=== PATIENT | male | born 1945 | race Hispanic/Latino ===

== ENCOUNTER 2019-12-08 21:10 | Emergency (ER) | payer OTHER ==
[2019-12-08] MEDS ORDERED: DOXYCYCLINE 100 MG CAP PO ONE (22:02)
[2019-12-08] MEDS ORDERED: SMZ./TMP. 800/160 MG TABLET ONE (22:02)
[2019-12-08 22:24] LABS: Absolute Lymphocytes (CBC) 1.2 K/uL (0.7-4.9); Hematocrit 43.7 % (39.6-49.0); Lymphocytes % 18.8 % (15.3-44.8); MPV 8.3 fL (7.6-11.3); Potassium 3.5 mmol/L (3.5-5.1); RBC Red Blood Cell Count 4.71 M/uL (4.33-5.43)
--- NOTE | 2019-12-08 22:33 | EDPHYS ---
Physician Documentation [facility] Name: Harpreet Izaguirre Age: 74 yrs Sex: Male : 1945 Arrival Date: 12/08/2019 Time: 21:16 Bed 7 Private MD: ED Physician Dalton Melendez HPI: 12/07 22:45 This 74 yrs old Male presents to ER via Ambulatory with complaints of Rash. kb 22:45 The patient's rash thought to be caused by an unknown cause. The rash is located on the kb right valles. The rash can be described as erythematous. Onset: The symptoms/episode began/occurred 3 day(s) ago. Associated signs and symptoms: Pertinent positives: Pain. Severity of symptoms: At their worst the symptoms were moderate in the emergency department the symptoms are unchanged. The patient has not experienced similar symptoms in the past. The patient has not recently seen a physician. Pt reports he was bit by something around his knee and since then developed redness and swelling to right lower leg. Historical: - Allergies: 21:27 No Known Allergies; - Home Meds: 21:27 pantoprazole oral oral [Active]; Lisinopril Oral [Active]; Gout Medicine [Active]; - PMHx: 21:27 Hypertension; GERD; Gout; High Cholesterol; Heart Stents; - PSHx: 21:27 Tonsillectomy; Knee surgery; - Immunization history:: Adult Immunizations unknown. - Social history:: Smoking status: Patient reports the use of cigarette tobacco products, cigars, Patient uses alcohol, weekly. ROS: 22:46 Constitutional: Negative for fever, chills, and weight loss, Cardiovascular: Negative kb for chest pain, palpitations, and edema, Respiratory: Negative for shortness of breath, cough, wheezing, and pleuritic chest pain, Abdomen/GI: Negative for abdominal pain, nausea, vomiting, diarrhea, and constipation, Back: Negative for injury and pain, MS/Extremity: Negative for injury and deformity, Neuro: Negative for headache, weakness, numbness, tingling, and seizure. 22:46 Skin: Positive for erythema, rash, swelling, of the right valles. Exam: 22:46 Constitutional: This is a well developed, well nourished patient who is awake, alert, kb and in no acute distress. Head/Face: Normocephalic, atraumatic. Chest/axilla: Normal chest wall appearance and motion. Nontender with no deformity. No lesions are appreciated. Cardiovascular: Regular rate and rhythm with a normal S1 and S2. No gallops, murmurs, or rubs. Normal PMI, no JVD. No pulse deficits. Respiratory: Lungs have equal breath sounds bilaterally, clear to auscultation and percussion. No rales, rhonchi or wheezes noted. No increased work of breathing, no retractions or nasal flaring. Abdomen/GI: Soft, non-tender, with normal bowel sounds. No distension or tympany. No guarding or rebound. No evidence of tenderness throughout. MS/ Extremity: Pulses equal, no cyanosis. Neurovascular intact. Full, normal range of motion. Neuro: Awake and alert, GCS 15, oriented to person, place, time, and situation. Cranial nerves II-XII grossly intact. Motor strength 5/5 in all extremities. Sensory grossly intact. Cerebellar exam normal. Normal gait. 22:46 Skin: cellulitis, that is moderate, on the right valles. Vital Signs: 21:21 BP 138 / 60; Pulse 86; Resp 18; Temp 98.1; Pulse Ox 98% on R/A; Weight 83.91 kg; Height wh 5 ft. 6 in. (167.64 cm); 22:30 BP 105 / 47; Pulse 80; Resp 16; Pulse Ox 99% ; rr5 21:21 Body Mass Index 29.86 (83.91 kg, 167.64 cm) MDM: 21:41 Patient medically screened. kb 22:31 Data reviewed: vital signs, nurses notes. Data interpreted: Pulse oximetry: on room air kb is 98 %. Interpretation: normal. Counseling: I had a detailed discussion with the patient and/or guardian regarding: the historical points, exam findings, and any diagnostic results supporting the discharge/admit diagnosis, lab results, the need for outpatient follow up, a family practitioner, to return to the emergency department if symptoms worsen or persist or if there are any questions or concerns that arise at home. 12/07 21:46 Order name: CBC with Diff; Complete Time: 22:31 kb 12/07 21:46 Order name: Basic Metabolic Panel; Complete Time: 22:31 kb 12/07 21:46 Order name: IV Start; Complete Time: 22:07 kb 12/07 21:46 Order name: Blood Culture Adult (2) kb Administered Medications: 21:52 Drug: Bactrim (160 mg-800 mg (DS) 1 tablet Route: PO; rr5 22:48 Follow up: Response: No adverse reaction; Medication administered at discharge. ss 21:52 Drug: Doxycycline 100 mg Route: PO; rr5 22:48 Follow up: Response: No adverse reaction; Medication administered at discharge. ss Disposition: 12/08 03:00 Co-signature as Attending Physician, Dalton Melendez MD. mh7 Disposition: 12/08/19 22:33 Discharged to Home. Impression: Cellulitis of right lower limb. - Condition is Stable. - Discharge Instructions: Cellulitis, Adult, Iiph-gy-Vewm. - Prescriptions for Doxycycline Hyclate 100 mg Oral Tablet - take 1 tablet by ORAL route every 12 hours; 20 tablet. Bactrim DS 800- 160 mg Oral Tablet - take 1 tablet by ORAL route every 12 hours for 10 days; 20 tablet. - Medication Reconciliation Form, Thank You Letter, Antibiotic Education, Prescription Opioid Use form. - Follow up: Emergency Department; When: As needed; Reason: Worsening of condition. Follow up: Private Physician; When: 2 - 3 days; Reason: Recheck today's complaints, Continuance of care, Re-evaluation by your physician. Signatures: Dispatcher [employer] Julianna Ward, RING SEWER-C RING SEWER-Temi Corrigan RN RN Den Brunner Raymond RN RN 5 Dalton Melendez MD MD [email or web address] Corrections: (The following items were deleted from the chart) 12/07 22:47 22:33 12/08/2019 22:33 Discharged to Home. Impression: Cellulitis of right lower limb. ss Condition is Stable. Forms are Medication Reconciliation Form, Thank You Letter, Antibiotic Education, Prescription Opioid Use. Follow up: Emergency Department; When: As needed; Reason: Worsening of condition. Follow up: Private Physician; When: 2 - 3 days; Reason: Recheck today's complaints, Continuance of care, Re-evaluation by your physician. kb
--- NOTE | 2019-12-08 22:33 | ER ---
Nurse's Notes [facility] Name: Harpreet Izaguirre Age: 74 yrs Sex: Male : 1945 Arrival Date: 12/08/2019 Time: 21:16 Bed 7 Private MD: Diagnosis: Cellulitis of right lower limb Presentation: 12/07 21:21 Chief complaint: Patient states: C/O rash and redness on right lower extremity that wh starting to spread more. Pt feels more discomfort rather than pain on the affected area. Pt denies fever or any associated symptoms. Coronavirus screen: Client denies travel out of the [place] in the last 14 days. At this time, the client does not indicate any symptoms associated with coronavirus-19. Ebola Screen: Patient negative for fever greater than or equal to 101.5 degrees Fahrenheit, and additional compatible Ebola Virus Disease symptoms Patient denies exposure to infectious person. Initial Sepsis Screen: Does the patient meet any 2 criteria? No. Patient's initial sepsis screen is negative. Does the patient have a suspected source of infection? Yes: Skin breakdown/wound. Risk Assessment: Do you want to hurt yourself or someone else? Patient reports no desire to harm self or others. Onset of symptoms was December 08, 2019. 21:21 Method Of Arrival: Ambulatory 21:21 Acuity: LORA 3 Historical: - Allergies: 21:27 No Known Allergies; - Home Meds: 21:27 pantoprazole oral oral [Active]; Lisinopril Oral [Active]; Gout Medicine [Active]; - PMHx: 21:27 Hypertension; GERD; Gout; High Cholesterol; Heart Stents; - PSHx: 21:27 Tonsillectomy; Knee surgery; - Immunization history:: Adult Immunizations unknown. - Social history:: Smoking status: Patient reports the use of cigarette tobacco products, cigars, Patient uses alcohol, weekly. Screenin:28 Abuse screen: Denies threats or abuse. Denies injuries from another. Nutritional screening: No deficits noted. Tuberculosis screening: No symptoms or risk factors identified. Fall Risk None identified. Assessment: 21:39 General: Appears in no apparent distress. uncomfortable, obese, Behavior is calm, vc cooperative, appropriate for age. Pain: Complains of pain in right valles Pain does not radiate. Pain currently is 0 out of 10 on a pain scale. at worst was 5 out of 10 on a pain scale. Quality of pain is described as pressure, Pain began 2-3 days ago. Is continuous, Alleviated by rest, Aggravated by weight bearing, Also complains of no other associated symptoms. Neuro: Level of Consciousness is awake, alert, obeys commands, Oriented to person, place, time, situation, Appropriate for age. Cardiovascular: Capillary refill < 3 seconds. Respiratory: Airway is patent Respiratory effort is even, unlabored, Respiratory pattern is regular, symmetrical. GI: No signs and/or symptoms were reported involving the gastrointestinal system. : No signs and/or symptoms were reported regarding the genitourinary system. Derm: Skin Wound noted right valles Wound is red in color with yellow weeping fluid. 22:45 Reassessment: Patient appears in no apparent distress at this time. Patient is alert, rr5 oriented x 3, equal unlabored respirations, skin warm/dry/pink. discharge instruction given and explained without complaints made. Vital Signs: 21:21 BP 138 / 60; Pulse 86; Resp 18; Temp 98.1; Pulse Ox 98% on R/A; Weight 83.91 kg; Height 5 ft. 6 in. (167.64 cm); 22:30 BP 105 / 47; Pulse 80; Resp 16; Pulse Ox 99% ; rr5 21:21 Body Mass Index 29.86 (83.91 kg, 167.64 cm) ED Course: 21:16 Patient arrived in ED. cl3 21:24 Triage completed. wh 21:29 Arm band placed on right wrist. 21:35 Prachi Rios, MATEO is Primary Nurse. vc 21:41 Julianna Alan FNP-C is PHCP. kb 21:41 Dalton Melendez MD is Attending Physician. kb 21:42 Patient has correct armband on for positive identification. Bed in low position. Pulse vc ox on. NIBP on. 22:46 No provider procedures requiring assistance completed. IV discontinued, intact, ss bleeding controlled, No redness/swelling at site. Pressure dressing applied. Administered Medications: 21:52 Drug: Bactrim (160 mg-800 mg (DS) 1 tablet Route: PO; rr5 22:48 Follow up: Response: No adverse reaction; Medication administered at discharge. ss 21:52 Drug: Doxycycline 100 mg Route: PO; rr5 22:48 Follow up: Response: No adverse reaction; Medication administered at discharge. Outcome: 22:33 Discharge ordered by . kb 22:46 Discharged to home ambulatory. ss 22:46 Condition: good 22:46 Discharge instructions given to patient, Instructed on discharge instructions, follow up and referral plans. medication usage, wound care, Demonstrated understanding of instructions, follow-up care, medications, Prescriptions given X 2. 22:47 Patient left the ED. Signatures: Julianna Alan, LABEL DESIGNER-C LABEL DESIGNER-Temi Corrigan RN RN Den Brunner Ramakrishna Mathews RN RN rr5 Roverto Larson cl3 Prachi Rios RN RN vc Corrections: (The following items were deleted from the chart) 21:29 21:21 Acuity: LORA 4 [facility]
[2019-12-09 01:53] VITALS: BP 138/60; TEMP 98.1; O2SAT 98
== END 2019-12-08 22:47 | disposition home or self-care (01) ==
LOC: ER 21:10
DX: L03.115 Cellulitis of right lower limb (principal); I10 Essential (primary) hypertension; E78.00 Pure hypercholesterolemia, unspecified; Z95.818 Presence of other cardiac implants and grafts; F17.290 Nicotine dependence, other tobacco product, uncomplicated
CPT/HCPCS: 36415; 80048; 85025; 87040; 99283

== ENCOUNTER 2020-10-03 15:40 | Inpatient (IN) | payer OTHER ==
[2020-10-03 19:52] LABS: Basophils % 0.5 % (0-1.3); Hematocrit 45.3 % (39.6-49.0); Lymphocytes % 23.7 % (15.3-44.8); MPV 8.6 fL (7.6-11.3); RBC Red Blood Cell Count 5.13 M/uL (4.33-5.43)
[2020-10-03 19:53] LABS: Bilirubin Direct 0.2 mg/dL (0-0.2); Bilirubin Total 0.5 mg/dL (0.2-1.0); Potassium 3.3 mmol/L (3.5-5.1); Protein, Total 8.4 g/dL (6.4-8.2)
[2020-10-03] MEDS ORDERED: CEFAZOLIN/SWI 1gm 1 GM/10 ML SYR ONE ×2 (19:56→19:57)
--- NOTE | 2020-10-03 19:57 | RAD REPORT ---
EXAM DESCRIPTION: US - UPPER EXTREMITY VENOUS UNILATE - 10/03/2020 7:46 pm CLINICAL HISTORY: SWELLING Arm pain and swelling COMPARISON: <Comparisons> FINDINGS: Left upper extremity venous system was interrogated with Doppler technique. Normal flow, c ompressibility and augmentation was noted. There is no DVT present. IMPRESSION: No evidence of left upper extremity deep venous thrombosis.
[2020-10-03] MEDS ORDERED: NA CHLORIDE 0.9% 100 ML ONE (19:58)
[2020-10-03] MEDS ORDERED: VANCOMYCIN 1 GM/VIAL ONE (19:58)
[2020-10-03] MEDS ORDERED: CEFEPIME 2 GM VIAL ONE (19:59)
[2020-10-03] MEDS ORDERED: NA CHLORIDE 0.9% 250 ML ONE (19:59)
--- NOTE | 2020-10-03 20:25 | ER ---
Nurse's Notes [facility] Name: Harpreet Izaguirre Age: 75 yrs Sex: Male : 1945 Arrival Date: 10/03/2020 Time: 15:41 Bed 30 Private MD: Diagnosis: Cellulitis of left upper limb Presentation: 10/03 16:18 Chief complaint: Patient states: Dr. Coello's office cut some skin cancer off my left jl7 forearm on Saturday and the incisions have come apart. The pharmacy was closed all weekend and still closed today so I haven't had any antibiotics and the area is red all the way to my hand. Coronavirus screen: Client denies travel out of the [place] in the last 14 days. At this time, the client does not indicate any symptoms associated with coronavirus-19. Ebola Screen: No symptoms or risks identified at this time. Initial Sepsis Screen: Does the patient meet any 2 criteria? No. Patient's initial sepsis screen is negative. Does the patient have a suspected source of infection? Yes: Skin breakdown/wound. Risk Assessment: Do you want to hurt yourself or someone else? Patient reports no desire to harm self or others. Onset of symptoms was October 03, 2020. Care prior to arrival: None. 16:18 Method Of Arrival: Ambulatory [facility] 16:18 Acuity: LORA 3 jl7 Historical: - Allergies: 16:21 No Known Allergies; jl7 - PMHx: 16:21 GERD; Gout; heart stents; High Cholesterol; Hypertension; jl7 - Immunization history:: Adult Immunizations up to date, Client reports receiving the 2nd dose of the Covid vaccine. - Social history:: Smoking status: Patient reports the use of cigarette tobacco products, cigars. Screenin:01 Abuse screen: Denies threats or abuse. Nutritional screening: No deficits noted. ap3 Tuberculosis screening: No symptoms or risk factors identified. Fall Risk None identified. Assessment: 18:58 General: Appears in no apparent distress. comfortable, Behavior is calm, cooperative, ap3 appropriate for age. Pain: Complains of pain in dorsal aspect of left forearm Pain does not radiate. Neuro: Level of Consciousness is awake, alert, obeys commands, Oriented to person, place, time, situation, Appropriate for age Gait is steady. Cardiovascular: Capillary refill < 3 seconds. Respiratory: Airway is patent Respiratory effort is even, unlabored, Respiratory pattern is regular, symmetrical. GI: No signs and/or symptoms were reported involving the gastrointestinal system. : No signs and/or symptoms were reported regarding the genitourinary system. EENT: No signs and/or symptoms were reported regarding the EENT system. Derm: Wound noted dorsal aspect of left forearm Wound is dehisced post sx wound from cancer removal patient had done on Wednesday September 30, 2020. Patients left arm is reddened in color from the elbow down to his left hand. Swelling is present in the left hand. 20:58 General: attempted report. Receiving nurse is currently in with her recent admission, ap3 and I was informed she will return m y phone call. . 21:17 Reassessment: Patient and/or family updated on plan of care and expected duration. Pain ap3 level reassessed. Patient is alert, oriented x 3, equal unlabored respirations, skin warm/dry/pink. Vital Signs: 16:18 BP 124 / 57; Pulse 72; Resp 17; Temp 97.9; Pulse Ox 99% on R/A; Weight 83.01 kg; Pain jl7 0/10; 21:17 BP 132 / 65; Pulse 68; Resp 18; Pulse Ox 99% on R/A; ap3 ED Course: 15:41 Patient arrived in ED. as 16:21 Triage completed. jl7 16:21 Arm band placed on right wrist. Patient placed in waiting room, Patient notified of jl7 wait time. 17:13 Inserted saline lock: 20 gauge in right antecubital area, using aseptic technique. ap3 Blood collected. 18:50 Jeffery Dominguez NP is PHCP. pm1 18:50 Sanket Garibay MD is Attending Physician. pm1 18:58 Jessica Vee, MATEO is Primary Nurse. ap3 19:01 Patient has correct armband on for positive identification. Bed in low position. Call ap3 light in reach. Side rails up X 1. Pulse ox on. NIBP on. Door closed. Noise minimized. PO fluids given. 19:46 UPPER EXTREMITY VENOUS UNILATE In Process Unspecified. EDMS 20:25 Malcom Quick is Hospitalizing Provider. pm1 20:36 Prezas, Ari, DO is Hospitalizing Provider. pm1 22:18 No provider procedures requiring assistance completed. Patient admitted, IV remains in ap3 place. Administered Medications: 19:51 Drug: Cefepime 2 grams Route: IVPB; Rate: 200 ml/hr; Infused Over: 30 mins; Site: right ap3 antecubital; 20:59 Follow up: IV Status: Completed infusion; IV Intake: 200ml ap3 21:27 Drug: vancoMYCIN 1 grams Route: IVPB; Infused Over: 2 hrs; Site: right antecubital; ap3 22:19 Follow up: IV Status: Infusion continued upon admission ap3 Intake: 20:59 IV: 200ml; Total: 200ml. ap3 Outcome: 20:25 Decision to Hospitalize by Provider. pm1 22:18 Condition: good ap3 22:18 Discharge instructions given to patient, Instructed on the need for admit, Demonstrated understanding of admission 22:56 Admitted to Med/surg accompanied by nurse, via wheelchair, room 204, with chart. ap3 22:57 Patient left the ED. ap3 Signatures: Dispatcher [employer] EDMS Rosmery Rutherford Patrick, TRAINS SERVICE CONDUCTOR TRAINS SERVICE CONDUCTOR pm1 Marco A Magaña, RN RN jl7 Jessica Vee RN RN ap3
--- NOTE | 2020-10-03 20:25 | EDPHYS ---
Physician Documentation [facility] Name: Harpreet Izaguirre Age: 75 yrs Sex: Male : 1945 Arrival Date: 10/03/2020 Time: 15:41 Bed 30 Private MD: JULIANA Physician Sanket Garibay HPI: 10/03 19:02 This 75 yrs old Male presents to ER via Ambulatory with complaints of Incision pm1 Problem. 19:02 The patient presents with cellulitis of the dorsal aspect of left forearm. Description: pm1 draining, swollen. 19:02 Onset: The symptoms/episode began/occurred yesterday. Possible cause(s): wound pm1 dehiscence. Associated signs and symptoms: Pertinent positives: drainage, swelling, Pertinent negatives: headache. Modifying factors: the symptoms are alleviated by nothing, the symptoms are aggravated by nothing. Severity of symptoms: in the emergency department the symptoms are actually worse. The patient has not experienced similar symptoms in the past. The patient has been recently seen by a physician: Dr. Coello. Had skin cancer removed from his left forearm on Saturday Patient noticed wound dehiscence and swelling to hand and left forearm yesterday. Historical: - Allergies: 16:21 No Known Allergies; jl7 - PMHx: 16:21 GERD; Gout; heart stents; High Cholesterol; Hypertension; jl7 - Immunization history:: Adult Immunizations up to date, Client reports receiving the 2nd dose of the Covid vaccine. - Social history:: Smoking status: Patient reports the use of cigarette tobacco products, cigars. ROS: 19:02 Constitutional: Negative for fever, chills, and weight loss. pm1 19:02 Cardiovascular: Negative for chest pain, palpitations, and edema, Respiratory: Negative for shortness of breath, cough, wheezing, and pleuritic chest pain, Abdomen/GI: Negative for abdominal pain, nausea, vomiting, diarrhea, and constipation. 19:02 Neuro: Negative for headache, weakness, numbness, tingling, and seizure. 19:02 MS/extremity: Positive for swelling, of the left hand and left forearm, Negative for paresthesias, tingling. 19:02 Skin: Positive for of the dorsal aspect of left forearm, wound dehiscence and drainage. 19:02 All other systems are negative. Exam: 19:02 Constitutional: This is a well developed, well nourished patient who is awake, alert, pm1 and in no acute distress. Head/Face: Normocephalic, atraumatic. 19:02 Eyes: Exam is negative for acute changes, Extraocular movements: no acute changes, Conjunctiva: no acute changes, no injection. 19:02 ENT: Exam is negative for acute changes, Mouth: Lips: normal, Oral mucosa: normal, pink and intact, moist. 19:02 Cardiovascular: Exam negative for acute changes, Rate: normal, Rhythm: regular, Pulses: no pulse deficits are appreciated. 19:02 Respiratory: Exam negative for acute changes, respiratory distress, shortness of breath. 19:02 Abdomen/GI: Inspection: abdomen appears normal, Palpation: abdomen is soft and non-tender, in all quadrants. Vital Signs: 16:18 BP 124 / 57; Pulse 72; Resp 17; Temp 97.9; Pulse Ox 99% on R/A; Weight 83.01 kg; Pain jl7 0/10; 21:17 BP 132 / 65; Pulse 68; Resp 18; Pulse Ox 99% on R/A; ap3 MDM: 18:57 Patient medically screened. pm1 18:57 Data reviewed: vital signs. Data interpreted: Pulse oximetry: on room air is 99 %. pm1 Interpretation: normal. 20:23 Counseling: I had a detailed discussion with the patient and/or guardian regarding: the pm1 historical points, exam findings, and any diagnostic results supporting the discharge/admit diagnosis, lab results, the need for further work-up and treatment in the hospital. 10/03 19:01 Order name: Blood Culture Adult (2) pm1 10/03 19:01 Order name: Wound Culture pm1 10/03 19:01 Order name: CBC with Diff; Complete Time: 20:21 pm1 10/03 19:01 Order name: BMP; Complete Time: 20:21 pm1 10/03 19:01 Order name: LFT's; Complete Time: 20:21 pm10/03 19:01 Order name: Procalcitonin; Complete Time: 20:21 pm1 10/03 19:01 Order name: IV Saline Lock; Complete Time: 19:23 pm1 10/03 19:01 Order name: Lactate; Complete Time: 20:21 pm1 10/03 19:16 Order name: UPPER EXTREMITY VENOUS UNILATE; Complete Time: 20:21 EDMS Administered Medications: 19:51 Drug: Cefepime 2 grams Route: IVPB; Rate: 200 ml/hr; Infused Over: 30 mins; Site: right ap3 antecubital; 20:59 Follow up: IV Status: Completed infusion; IV Intake: 200ml ap3 21:27 Drug: vancoMYCIN 1 grams Route: IVPB; Infused Over: 2 hrs; Site: right antecubital; ap3 22:19 Follow up: IV Status: Infusion continued upon admission ap3 Disposition: 10/04 18:50 Co-signature as Attending Physician, Sanket Garibay MD I agree with the assessment and ruben plan of care. Disposition Summary: 10/03/20 20:25 Hospitalization Ordered Hospitalization Status: Inpatient Admission pm1 Location: Telemetry/MedSurg (Inpatient) pm1 Condition: Stable pm1 Problem: new pm1 Symptoms: have improved pm1 Bed/Room Type: Standard pm1 Provider: Ari Garnica(10/03/20 20:36) pm1 Room Assignment: [facility](10/03/20 20:42) Diagnosis - Cellulitis of left upper limb pm1 Forms: - Medication Reconciliation Form pm1 - SBAR form pm1 Signatures: Dispatcher [employer] EDMS Natalia Duff RN Sanket Sr MD MD cha Marinas, Patrick, BIOCHEMISTRY SPECIALIST BIOCHEMISTRY SPECIALIST pm1 Marco A Magaña RN RN jl7 Jessica Vee RN RN ap3 Corrections: (The following items were deleted from the chart) 10/03 19:16 19:02 Extremity Venous Uni Ltd+[email or web address] ordered. EDMS EDMS 20:36 20:25 Malcom Quick pm1 pm1 20:42 20:25 pm1 mw
[2020-10-03] MEDS ORDERED: Levofloxacin500mg IV 500 MG/100 ML BAG IV SCH (22:00)
[2020-10-03] MEDS ORDERED: ACETAMINOPHEN 500 MG TAB PO PRN (22:00)
[2020-10-03] MEDS ORDERED: MORPHINE 2 MG/ML SYR IV PRN (22:00)
[2020-10-03] MEDS ORDERED: ONDANSETRON 4 MG/2 ML VIAL IV PRN (22:00)
[2020-10-03 23:11] VITALS: BMI 30.6
[2020-10-03] MEDS ORDERED: VANCOMYCIN 500 MG in NA CHLORIDE 0.9% 100 ML IVPB SCH (23:30)
--- NOTE | 2020-10-03 23:53 | P.HP ---
Certification for Inpatient Patient admitted to: Inpatient With expected LOS: >2 Midnights Patient will require the following post-hospital care: None Practitioner: I am a practitioner with admitting privileges, knowledge of patient current condition, hospital course, and medical plan of care. Services: Services provided to patient in accordance with Admission requirements found in Title 42 Section 412.3 of the Code of Federal Regulations Patient History Date of Service: 10/03/20 Primary Care Provider: Reji Reason for admission: Cellulitis Left Forearm History of Present Illness: This is a 75-year-old male with a history of high cholesterol, hypertension and coronary artery disease who presented to the emergency room today after having an incisional biopsy to the left forearm for cancer this past Saturday. Patient was seen by a doctor Coello who is a vice president process on an outpatient center to have the procedure completed. Patient stated that he was unable to fill is antibiotics and that on Saturday he started to have redness and blistering around the wound site that has since spread. Patient was seen emerge ncy room today and worked up. Patient had a white cell count of 8.4, hemoglobin of 15, hematocrit of 45.3, platelet 197. Patient had a sodium of 138, potassium 3.3, chloride 104, bicarb 33, be you in 11, creatinine 1.03, glucose 105. Blood cultures were drawn and patient was put on vancomycin and cefepime in the emergency room. Medicine saw patient and ask for consult to Dr. Coleman will see the patient in the morning. Patient is to stay NPO though midnight as there is a possibility that Dr. Coleman will take patient for debridement in the morning. Allergies No Known Allergies Allergy (Verified 10/03/20 23:18) Home medications list reviewed: Yes Home Medications: Aspirin 81 mg PO DAILY 04/12/13 Atorvastatin Calcium [Lipitor*] 20 mg PO DAILY 04/12/13 atenoloL [Tenormin*] 50 mg PO DAILY 04/12/13 lisinopriL [Prinivil*] 10 mg PO DAILY 04/12/13 allopurinoL [Zyloprim] 100 mg PO DAILY 12/20/15 Furosemide [Lasix] 20 mg PO TID #30 tab 12/21/15 - Past Medical/Surgical History Has patient received pneumonia vaccine in the past: Yes Diabetic: No -: HTN -: hypercholesterolemia -: chf -: A cigar smoker -: cardiac cath x3 -: heart stent x3 -: tonsilectomy - Social History Smoking Status: Current some day smoker Counseled patient to stop smoking for: less than 10 minutes Smoking therapy provided: Yes Patient receptive to therapy: Yes Alcohol use: No CD- Drugs: No Caffeine use: Yes Place of Residence: Home Review of Systems General: Unremarkable Eyes: Unremarkable Respiratory: Unremarkable Cardiovascular: Unremarkable Gastrointestinal: Unremarkable Musculoskeletal: Unremarkable Integumentary: As per HPI Neurological: Unremarkable Lymphatics: Unremarkable Physical Examination - Vital Signs Temperature: 98.0 F Blood Pressure: 142/62 Pulse: 60 Respirations: 18 Pulse Ox (%): 98 - Physical Exam General: Alert, Oriented x3, Cooperative HEENT: PERRLA, Mucous membr. moist/pink, EOMI Neck: Supple, 2+ carotid pulse no bruit, JVD not distended Respiratory: Clear to auscultation bilaterally, Normal air movement Cardiovascular: No edema, Normal pulses, Regular rate/rhythm, Normal S1 S2, No gallops, No rubs, No murmurs Capillary refill: <2 Seconds Gastrointestinal: Normal bowel sounds, Soft and benign, Non-distended, No ascites, No tenderness, No masses, No rebound, No guarding Musculoskeletal: No clubbing, No swelling, No contractures, No tenderness Integumentary: Other (Patient has approximately 7.5 cm incisional wound to the dorsal left forearm with dehiscence. Surrounding the wound is multiple vesicular serous sanguinous lesions with moderate swelling and erythema that extends from the dorsal hand up to the antecubital region of the left forearm.) Neurological: Normal speech, Normal strength at 5/5 x4 extr, Normal tone, Sensation intact, Cranial nerves 3-12 intact, Normal affect Lymphatics: No axilla or inguinal lymphadenopathy - Studies Laboratory Data (last 24 hrs) 10/03/20 19:13: Sodium 139, Potassium 3.3 L, BUN 11, Creatinine 1.03, Glucose 105, Total Bilirubin 0.5, AST 16, ALT 17, Alkaline Phosphatase 142 H 10/03/20 19:13: WBC 8.40, Hgb 15.0, Hct 45.3, Plt Count 197 Assessment and Plan - Problems (Diagnosis) (1) Hypertension Current Visit: Yes Status: Chronic Qualifiers: Hypertension type: primary hypertension Qualified Code(s): I10 - Essential (primary) hypertension (2) Hypercholesterolemia Current Visit: Yes Status: Chronic (3) Cellulitis of left forearm Current Visit: Yes Status: Acute (4) Dehiscence of surgical wound Current Visit: Yes Status: Acute Qualifiers: Encounter type: initial encounter Qualified Code(s): T81.31XA - Disruption of external operation (surgical) wound, not elsewhere classified, initial e ncounter - Plan 1. Patient will maintain on antibiotics with vancomycin and Levaquin at this time for cellulitis of the left forearm 2. We will monitor patient's vital signs over the next couple days to ensure stability and that he does not become septic 3. DVT prophylaxis 4. Will monitor his blood pressure and will treat for anything over 160 systolic or 90 diastolic 5. Patient was placed on potassium protocol as well 6. We will wait for further care instructions by Dr. Coleman. Depending on treatment course infectious disease may or may not have to be consulted. Discharge Plan: Home Plan to discharge in: Greater than 2 days - Advance Directives Does patient have a Living Will: No Does patient have a Durable POA for Healthcare: No - Code Status/Comfort Care Code Status Assessed: Yes Code Status: Full Code Critical Care: No Time Spent Managing Pts Care (In Minutes): 80
[2020-10-03] MEDS ORDERED: NA CHLORIDE 0.9% 500 ML ONE (23:58)
[2020-10-04] MEDS ORDERED: NA CHLORIDE 0.9% 100 ML ONE
[2020-10-04] MEDS ORDERED: VANCOMYCIN 500 MG/VIAL ONE (00:03)
[2020-10-04 04:19] LABS: Absolute Lymphocytes (CBC) 1.3 K/uL (0.7-4.9); Basophils % 0.5 % (0-1.3); Hematocrit 40.2 % (39.6-49.0); Lymphocytes % 19.3 % (15.3-44.8); MPV 8.2 fL (7.6-11.3); RBC Red Blood Cell Count 4.58 M/uL (4.33-5.43)
[2020-10-04 04:31] LABS: BUN Blood Urea Nitrogen 10 mg/dL (7-18); Bicarbonate 29 mmol/L (21-32); Glucose Level 94 mg/dL (74-106); Potassium 3.3 mmol/L (3.5-5.1); Sodium Level 141 mmol/L (136-145)
--- NOTE | 2020-10-04 05:47 | P.PN ---
Subjective Date of Service: 10/04/20 Primary Care Provider: Dr. Mendoza Chief Complaint: Cellulitis Left Forearm Subjective: Other (Patient doing well at this time. Patient reports seen by dermatology as an outpatient. He recently had a biopsy which turned out to be abnormal for cancer. He then had a larger excision. Patient now with dehiscence of wound. He was not able to get antibiotics which recommended after Procedure) Physical Examination - Vital Signs Temperature: 98.1 F Blood Pressure: 139/60 Pulse: 71 Respirations: 18 Pulse Ox (%): 97 - Studies Laboratory Data (last 24 hrs) 10/03/20 19:13: Sodium 139, Potassium 3.3 L, BUN 11, Creatinine 1.03, Glucose 105, Total Bilirubin 0.5, AST 16, ALT 17, Alkaline Phosphatase 142 H 10/03/20 19:13: WBC 8.40, Hgb 15.0, Hct 45.3, Plt Count 197 Assessment & Plan Discharge Plan: Home Plan to discharge in: 48 Hours Physician Review Additional Text: Dopper Ext: COMPARISON: <Comparisons> FINDINGS: Left upper extremity venous system was interrogated with Doppler technique. Normal flow, compressibility and augmentation was noted. There is no DVT present. IMPRESSION: No evidence of left upper extremity deep venous thrombosis. Physical Exam: General: Alert, Oriented x3, Cooperative HEENT: Extraocular movements are intact. Neck: Supple Respiratory: Clear to auscultation bilaterally, Normal air movement Cardiovascular: Regular rate and rhythm Gastrointestinal: Soft nontender nondistended Integumentary: Other (Patient has approximately 7.5 cm incisional wound to the dorsal left forearm with dehiscence. Surrounding the wound is multiple vesicular serous sanguinous lesions with moderate swelling and erythema that extends from the dorsal hand up to the antecubital region of the left forearm.) Neurological: Normal speech, Normal strength at 5/5 x4 extr, Normal tone, Sensation intact, Cranial nerves 3-12 intact, Normal affect Lymphatics: No axilla or inguinal lymphadenopathy Impression: Left forearm cellulitis with recent 7.5 cm excisional wound due to skin cancer with dehiscence HTN Hyperlipidemia BPH Gout Plan: Left forearm cellulitis with recent 7.5 cm excisional wound due to skin cancer with dehiscence: Continue IV vancomycin and Levaquin. We will continue to monitor closely. Wound and blood culture obtained. Patient n.p.o. in anticipation for likely procedure by plastic surgery. Plastic surgery consulted to further assess. Patient will likely require irrigation and debridement with likely closure. Await further recommendations from plastic surgery. Pharmacy to monitor and adjust medication. DVT prophylaxis in placeLovenox. We will try to get more information from dermatology on the type of cancer that was removed. Anticipate improvement over the next 48 hours. HTN: Recommend to discontinue Dyazide. Will cushion cover inspector to carvedilol. Will monitor and make adjustments appropriately. Hyperlipidemia: Continue Lipitor 20 mg daily BPH: Continue Flomax 0.4 mg daily Gout: Continue allopurinol 100 mg daily DVT prophylaxis Lovenox Code status: Full code Advanced care planning-30 min: Home at discharge. Time Spent Managing Pts Care (In Minutes): 55
[2020-10-04] MEDS ORDERED: VANCOMYCIN/NS 1 gm 1 GM/250 ML BAG IVPB SCH (07:00)
[2020-10-04] MEDS ORDERED: HYDROCODONE/APAP 5/325 MG TAB PO PRN (07:56)
[2020-10-04] MEDS ORDERED: TRAMADOL HCL 50 MG TAB PO PRN (07:56)
[2020-10-04] MEDS ORDERED: POTASSIUM CL SA 10 MEQ TAB PO ONE (09:00)
[2020-10-04] MEDS: ATORVASTATIN 20 MG TAB PO SCH (09:14)
[2020-10-04] MEDS: TAMSULOSIN 0.4 MG SR CAP PO SCH (09:14)
[2020-10-04] MEDS: allopurinoL 100 MG TAB PO SCH (09:14)
[2020-10-04] MEDS ORDERED: Ringers Lactate 1,000 ML IV ONE (15:16)
[2020-10-04] MEDS ORDERED: propofoL 200 MG/20 ML VIAL IV ONE (16:01)
[2020-10-04] MEDS ORDERED: ONDANSETRON 4 MG/2 ML VIAL ONE (16:02)
[2020-10-04] MEDS ORDERED: KETOROLAC 30 MG/ML INJ ONE (16:02)
[2020-10-04] MEDS ORDERED: LIDOCAINE 1% MPF 30 ML VIAL ONE (16:02)
[2020-10-04] MEDS ORDERED: FENTANYL CITR 100 MCG/2 ML ONE (16:02)
--- NOTE | 2020-10-04 16:10 | EKG ---
Test Date: 2020-10-04 Test Time: 00:17:57 Correctional Lieutenant: BINA MEASUREMENT RESULTS: Intervals: Rate: 45 IN: 226 QRSD: 86 QT: 464 QTc: 401 Terrell: P: 64 IN: 226 QRS: 40 T: 73 INTERPRETIVE STATEMENTS: Sinus tachycardia with 2nd degree AV block with 4:1 AV conduction Abnormal ECG Compared to ECG 04/14/2013 07:45:52 Sinus rhythm no longer present Electronically Signed On 10-04-20 16:08:27 CDT by Alon Mg
[2020-10-04] MEDS: ENOXAPARIN 40 MG/0.4 ML SQ SCH (17:00)
[2020-10-04] MEDS ORDERED: SILVER SULFADIAZINE 1% 25 GM TOP ONE (17:42)
[2020-10-04] MEDS: carvediloL 3.125 MG TAB PO SCH (18:00)
[2020-10-04] MEDS ORDERED: CODEINE 30MG/APAP 300MG TAB PO PRN (18:09)
[2020-10-04] MEDS: SILVER SULFADIAZINE 1% 25 GM TOP SCH (21:00)
[2020-10-04] MEDS ORDERED: SILVER SULFADIAZINE 1% 25 GM TOP SCH (21:00)
[2020-10-04] MEDS: VANCOMYCIN 1.5 GM in NA CHLORIDE 0.9% 500 ML IVPB SCH (21:04)
--- NOTE | 2020-10-04 23:17 | OP ---
Surgeon: Ricardo Coleman MD Preoperative Diagnosis: Open wound, left forearm. Postoperative Diagnosis: Open wound, left forearm. Procedure Performed: Debridement of skin and subcutaneous tissue. Anesthesia: General. Operatie Note: After satisfactory induction of general anesthesia, left arm was prepped with Betadin e scrub, Betadine paint, dry sterile drapes were applied in usual manner. Tenotomy scissors and forc eps were used to remove the sutures and curette and scissors were used to debride the skin and subcut aneous tissue as needed. The wound was jet lavage irrigated with 3 L of Betadine solution, afterward s was scrubbed with Betadine scrub brush. The wound was then covered with Silvadene cream, fluffs, a nd Kerlix. Patient tolerated procedure well and returned to Recovery. AMALIA/DARRYL Voice ID: [id number] Report ID: [id number]
[2020-10-04] MEDS: Levofloxacin500mg IV 500 MG/100 ML BAG IV SCH (23:26)
--- NOTE | 2020-10-05 06:01 | P.PN ---
Subjective Date of Service: 10/05/20 Primary Care Provider: Dr. Mendoza Chief Complaint: Cellulitis Left Forearm Subjective: Improving, Doing well Physical Examination - Vital Signs Temperature: 97.8 F Blood Pressure: 132/62 Pulse: 63 Respirations: 16 Pulse Ox (%): 97 - Studies Microbiology Data (last 24 hrs): 10/03/20 19:20 Wound - Left Forearm Gram Stain - Final Assessment & Plan Discharge Plan: Home Plan to discharge in: Greater than 2 days Physician Review Additional Text: Dopper Ext: COMPARISON: <Comparisons> FINDINGS: Left upper extremity venous system was interrogated with Doppler technique. Normal flow, compressibility and augmentation was noted. There is no DVT present. IMPRESSION: No evidence of left upper extremity deep venous thrombosis. Physical Exam: General: Alert, Oriented x3, Cooperative HEENT: Extraocular movements are intact. Neck: Supple Respiratory: Clear to auscultation bilaterally, Normal air movement Cardiovascular: Regular rate and rhythm Gastrointestinal: Soft nontender nondistended Integumentary: Erythema, swelling to the left upper extremity improved. Debrid ement done to the wound yesterday. Neurological: Normal speech, Normal strength at 5/5 x4 extr, Normal tone, Sensation intact, Cranial nerves 3-12 intact, Normal affect Lymphatics: No axilla or inguinal lymphadenopathy Surgery: Date: 10/04/2020 Surgeon: Ricardo Coleman MD Preoperative Diagnosis: Open wound, left forearm. Postoperative Diagnosis: Open wound, left forearm. Procedure Performed: Debridement of skin and subcutaneous tissue. Anesthesia: General. Impression: Left forearm cellulitis with recent 7.5 cm excisional wound due to skin cancer with dehiscence status post debridement of skin and subcutaneous tissue HTN Hyperlipidemia BPH Gout Acute renal insufficiency Plan: Left forearm cellulitis with recent 7.5 cm excisional wound due to skin cancer with dehiscence status post debridement of skin and subcutaneous tissue: Patient doing well. Erythema and swelling to the liver extremity improved. Blood and wound culture obtained and pending. Continue IV vancomycin and Levaquin. Encourage oral intake. Continue to elevate arm when sitting or lying. Continue medication for pain. Patient on DVT prophylaxisLovenox. Case discussed with plastic surgery. Plastic surgery will evaluate patient again today. Plastic surgery to determine whether patient will require wound VAC versus continued antibiotics and likely skin graft in the next couple of days. Possible intervention likely on Saturday or Bib. We will continue to monitor closely. HTN: Dyazide has been discontinued. Continue carvedilol. Will monitor and make adjustments appropriately. Hyperlipidemia: Continue Lipitor 20 mg daily BPH: Continue Flomax 0.4 mg daily Gout: Continue allopurinol 100 mg daily Acute renal insufficiency: Encourage oral intake. Dyazide has been discontinued. DVT prophylaxis Lovenox Code status: Full code Advanced care planning-30 min: Home at discharge. Time Spent Managing Pts Care (In Minutes): 55
[2020-10-05] MEDS: carvediloL 3.125 MG TAB PO SCH ×2 (06:05→17:04)
[2020-10-05 06:07] LABS: Potassium 3.9 mmol/L (3.5-5.1)
[2020-10-05] MEDS: ATORVASTATIN 20 MG TAB PO SCH (08:44)
[2020-10-05] MEDS: TAMSULOSIN 0.4 MG SR CAP PO SCH (08:44)
[2020-10-05] MEDS: allopurinoL 100 MG TAB PO SCH (08:45)
[2020-10-05] MEDS: SILVER SULFADIAZINE 1% 25 GM TOP SCH ×2 (08:46→21:00)
[2020-10-05] MEDS ORDERED: POTASSIUM CL SA 10 MEQ TAB PO ONE (09:00)
[2020-10-05] MEDS: VANCOMYCIN 1.5 GM in NA CHLORIDE 0.9% 500 ML IVPB SCH (11:39)
[2020-10-05] MEDS: ENOXAPARIN 40 MG/0.4 ML SQ SCH (16:54)
[2020-10-06] MEDS: Levofloxacin500mg IV 500 MG/100 ML BAG IV SCH
--- NOTE | 2020-10-06 03:50 | CON ---
Date of Consultation: 10/04/2020 The patient was admitted on 10/03/2020. I saw the patient on 10/04/2020. Reason For Consultation: Cardiac clearance for arm surgery. History Of Present Illness: Mr. Izaguirre was admitted to Dr. Garnica. He has been seen by Dr. Ricardo Coleman. He has a history of gout, gastroesophageal reflux disease, hypertension, dyslipidemia, c oronary artery disease, he is status post previous stent in the past. Denies any cardiac symptoms. Denies any chest pain, shortness of breath, nausea, vomiting, PND, orthopnea, pedal edema, palpitatio ns, or syncope. Has not had a stress test for few years. Allergies: NONE. Past Medical History: As stated earlier. Review of Systems: Negative. Social History: Negative. Family History: Noncontributory. Medications: At home include allopurinol, Lipitor, Flomax, triamterene with hydrochlorothiazide, and he is on cephalexin. Physical Examination: Vital Signs: Stable. He was afebrile. HEENT: Negative. Neck: Supple without any bruit, lymphadenopathy, JVD, or thyromegaly. Chest: Clear to auscultation and percussion. Cardiac: Revealed a regular rhythm and rate. No murmurs, gallops, or rubs. Abdomen: Benign. Extremities: Revealed no clubbing, cyanosis, or edema. Diagnostic Data: Showed sinus tachycardia with a second degree AV block, most likely a type 1 Wencke bach. His chest x-ray was negative. He had an extremity venous Doppler showed no evidence of left u pper extremity deep venous thrombosis. His laboratory evaluation was positive for slight hypokalemia . His white count was normal. His creatinine was normal. Impression And Plan: 1.This is a patient with history of coronary artery disease, status post stents with no previous ethan ting, but no cardiac symptoms. EKG is not showing any acute changes. Chest x-ray is negative. Crea tinine is normal. Potassium needs to be corrected, is probably low because of the diuretic. Neverth eless, I feel comfortable with him going to surgery. I think he is at low risk for perioperative mor tality. 2.Abnormal EKG. No clinical significance at this point. No symptoms. I think he needs to have a f ollowup EKG and a followup appointment in the office in the near future. His other problems includin g hypertension and dyslipidemia seem to be stable. His left arm wound is being evaluated by Dr. Juventino whalen. There is a plan to have that operated on in the near future. I will be available for sol dixon if the need arises. DAVID/DARRYL Voice ID: [id number] Report ID: [id number]
[2020-10-06 05:51] LABS: Absolute Lymphocytes (CBC) 1.5 K/uL (0.7-4.9); Basophils % 0.8 % (0-1.3); Hematocrit 37.3 % (39.6-49.0); Lymphocytes % 25.6 % (15.3-44.8); MPV 8.1 fL (7.6-11.3); RBC Red Blood Cell Count 4.26 M/uL (4.33-5.43)
--- NOTE | 2020-10-06 05:59 | P.PN ---
Subjective Date of Service: 10/06/20 Primary Care Provider: Dr. Mendoza Chief Complaint: Cellulitis Left Forearm Subjective: Improving, Doing well Physical Examination - Vital Signs Temperature: 98.7 F Blood Pressure: 134/62 Pulse: 65 Respirations: 16 Pulse Ox (%): 94 - Studies Microbiology Data (last 24 hrs): 10/03/20 19:20 Wound - Left Forearm Gram Stain - Final Assessment & Plan Discharge Plan: Home Plan to discharge in: 48 Hours Physician Review Additional Text: Dopper Ext: COMPARISON: <Comparisons> FINDINGS: Left upper extremity venous system was interrogated with Doppler technique. Normal flow, compressibility and augmentation was noted. There is no DVT present. IMPRESSION: No evidence of left upper extremity deep venous thrombosis. Physical Exam: General: Alert, Oriented x3, Cooperative HEENT: Extraocular movements are intact. Neck: Supple Respiratory: Clear to auscultation bilaterally, Normal air movement Cardiovascular: Regular rate and rhythm Gastrointestinal: Soft nontender nondistended Integumentary: Erythema, swelling to the left upper extremity improved. Debridement done to the wound yesterday. Neurological: Normal speech, Normal strength at 5/5 x4 extr, Normal tone, Sensation intact, Cranial nerves 3-12 intact, Normal affect Lymphatics: No axilla or inguinal lymphadenopathy Surgery: Date: 10/04/2020 Surgeon: Ricardo Coleman MD Preoperative Diagnosis: Open wound, left forearm. Postoperative Diagnosis: Open wound, left forearm. Procedure Performed: Debridement of skin and subcutaneous tissue. Anesthesia: General. Impression: Left forearm cellulitis with recent 7.5 cm excisional wound due to skin cancer with dehiscence status post debridement of skin and subcutaneous tissue HTN Hyperlipidemia BPH Gout Acute renal insufficiency Plan: Left forearm cellulitis with recent 7.5 cm excisional wound due to skin cancer with dehiscence status post debridement of skin and subcutaneous tissue: Patient doing well. Erythema and swelling to the liver extremity improved. Blood and wound culture obtained and pending. Continue IV vancomycin and Levaquin. Consult wound care to evaluate and treat wound. Encourage oral intake. Continue to elevate arm when sitting or lying. Continue medication for pain. Patient on DVT prophylaxisLovenox. Case discussed with plastic surgery. Plastic surgery to determine whether patient will require wound VAC versus continued antibiotics and likely skin graft in the next couple of days. Possible intervention likely on Saturday or Saturday. We will continue to monitor closely. HTN: Dyazide has been discontinued. Continue carvedilol. Will monitor and make adjustments appropriately. Hyperlipidemia: Continue Lipitor 20 mg daily BPH: Continue Flomax 0.4 mg daily Gout: Continue allopurinol 100 mg daily Acute renal insufficiency: Encourage oral intake. Dyazide has been discontin ued. DVT prophylaxis Lovenox Code status: Full code Advanced care planning-30 min: Home at discharge. Time Spent Managing Pts Care (In Minutes): 55
[2020-10-06 06:12] LABS: Magnesium 2.2 mg/dL (1.8-2.4); Potassium 3.9 mmol/L (3.5-5.1)
[2020-10-06] MEDS: carvediloL 3.125 MG TAB PO SCH ×2 (06:26→17:08)
[2020-10-06] MEDS: VANCOMYCIN 1.5 GM in NA CHLORIDE 0.9% 500 ML IVPB SCH (06:26)
[2020-10-06] MEDS: allopurinoL 100 MG TAB PO SCH (08:53)
[2020-10-06] MEDS: ATORVASTATIN 20 MG TAB PO SCH (08:53)
[2020-10-06] MEDS: TAMSULOSIN 0.4 MG SR CAP PO SCH (08:53)
[2020-10-06] MEDS: SILVER SULFADIAZINE 1% 25 GM TOP SCH ×2 (08:54→21:00)
[2020-10-06] MEDS: ENOXAPARIN 40 MG/0.4 ML SQ SCH (16:48)
[2020-10-07] MEDS: Levofloxacin500mg IV 500 MG/100 ML BAG IV SCH (01:00)
[2020-10-07] MEDS: VANCOMYCIN 1.5 GM in NA CHLORIDE 0.9% 500 ML IVPB SCH (01:10)
[2020-10-07] MEDS: carvediloL 3.125 MG TAB PO SCH (04:54)
[2020-10-07 05:47] LABS: Absolute Lymphocytes (CBC) 1.6 K/uL (0.7-4.9); Basophils % 1.2 % (0-1.3); Hematocrit 38.5 % (39.6-49.0); Lymphocytes % 23.5 % (15.3-44.8); MPV 8.1 fL (7.6-11.3); RBC Red Blood Cell Count 4.34 M/uL (4.33-5.43)
--- NOTE | 2020-10-07 05:57 | P.PN ---
Subjective Date of Service: 10/07/20 Primary Care Provider: Dr. Mendoza Chief Complaint: Cellulitis Left Forearm Subjective: Improving, Doing well Physical Examination - Vital Signs Temperature: 97.9 F Blood Pressure: 156/69 Pulse: 65 Respirations: 16 Pulse Ox (%): 96 Assessment & Plan Discharge Plan: Home Plan to discharge in: 24 Hours Physician Review Additional Text: Dopper Ext: COMPARISON: <Comparisons> FINDINGS: Left upper extremity venous system was interrogated with Doppler technique. Normal flow, compressibility and augmentation was noted. There is no DVT present. IMPRESSION: No evidence of left upper extremity deep venous thrombosis. Physical Exam: General: Alert, Oriented x3, Cooperative HEENT: Extraocular movements are intact. Neck: Supple Respiratory: Clear to auscultation bilaterally, Normal air movement Cardiovascular: Regular rate and rhythm Gastrointestinal: Soft nontender nondistended Integumentary: Erythema, swelling to the left upper extremity improved. Post op changes noted to the left forearm. Bandage in place. Neurological: Normal speech, Normal strength at 5/5 x4 extr, Normal tone, Sensation intact, Cranial nerves 3-12 intact, Normal affect Lymphatics: No axilla or inguinal lymphadenopathy Surgery: Date: 10/04/2020 Surgeon: Ricardo Coleman MD Preoperative Diagnosis: Open wound, left forearm. Postoperative Diagnosis: Open wound, left forearm. Procedure Performed: Debridement of skin and subcutaneous tissue. Anesthesia: General. Impression: Left forearm cellulitis with recent 7.5 cm excisional wound due to skin cancer with dehiscence status post debridement of skin and subcutaneous tissue HTN Hyperlipidemia BPH Gout Acute renal insufficiency Plan: Left forearm cellulitis with recent 7.5 cm excisional wound due to skin cancer with dehiscence status post debridement of skin and subcutaneous tissue: SPoke to Plastic surgery yesterday. Plan is for skin graft today. If done, then likely home with wound care instructions and follow up with Plastic surgery. Continue IV vancomycin and Levaquin. WOund care also consulted to help with management. Anticipate DC home today after surgery. HTN: Dyazide has been discontinued. Continue carvedilol. Will monitor and make adjustments appropriately. Hyperlipidemia: Continue Lipitor 20 mg daily BPH: Continue Flomax 0.4 mg daily Gout: Continue allopurinol 100 mg daily Acute renal insufficiency: Encourage oral intake. Dyazide has been discontinued. DVT prophylaxis Lovenox Code status: Full code Advanced care planning-30 min: Home at discharge. Time Spent Managing Pts Care (In Minutes): 55
[2020-10-07 06:04] LABS: Magnesium 2.3 mg/dL (1.8-2.4)
[2020-10-07] MEDS: TAMSULOSIN 0.4 MG SR CAP PO SCH (09:00)
[2020-10-07] MEDS: SILVER SULFADIAZINE 1% 25 GM TOP SCH (09:00)
[2020-10-07] MEDS: allopurinoL 100 MG TAB PO SCH (09:00)
[2020-10-07] MEDS: ATORVASTATIN 20 MG TAB PO SCH (09:00)
[2020-10-07] MEDS ORDERED: MINERAL OIL, LITE 10 ML VIAL ONE (13:13)
[2020-10-07] MEDS ORDERED: Ringers Lactate 1,000 ML IV ONE (13:44)
--- NOTE | 2020-10-07 14:18 | P.DS ---
Admission Date: 10/03/20 Discharge Date: 10/07/20 Primary Care Provider: Dr. Mendoza Disposition: ROUTINE DISCHARGE Discharge Condition: GOOD Reason for Admission: Cellulitis Left Forearm Consultations: Plastic Surgery-Dr. Coleman Procedures: Dopper Ext: COMPARISON: <Comparisons> FINDINGS: Left upper extremity venous system was interrogated with Doppler technique. Normal flow, compressibility and augmentation was noted. There is no DVT present. IMPRESSION: No evidence of left upper extremity deep venous thrombosis. Surgery: Date: 10/04/2020 Surgeon: Ricardo Coleman MD Preoperative Diagnosis: Open wound, left forearm. Postoperative Diagnosis: Open wound, left forearm. Procedure Performed: Debridement of skin and subcutaneous tissue. Anesthesia: General. Surgery: Date: 10/07/2020 Surgeon: Dr. Coleman Procedure performed: Debridement with closure of wound. Medical Problem List: Left forearm cellulitis with recent 7.5 cm excisional wound due to skin cancer with dehiscence status post debridement of skin and subcutaneous tissue with closure of wound, wound culture positive for staph aureus HTN Hyperlipidemia BPH Gout Acute renal insufficiency Brief History of Present Illness: 75-year-old male with history of hypertension, hyperlipidemia, CAD and BPH. Patient presented to the emergency room due to wound dehiscence. Patient had excisional biopsy of the left forearm for cancer last Saturday. Patient was not able to fill his antibiotics. On Saturday he reported increased redness, blistering. Since that time the wound has opened. The patient was admitted for treatment. Hospital Course: Patient presented with left forearm cellulitis with recent 7.5 cm excisional wound due to skin cancer. There was wound dehiscence. Patient was admitted for treatment. Patient was started on IV antibiotic therapy with improvement. Patient was seen and evaluated by plastic surgery. Plastic surgery performed debridement of skin and subcutaneous tissue. After swelling improved patient was taken back again to surgery for I/D and closure. Patient has done well. Wound culture positive for staph aureus. At discharge the patient will continue with Levaquin 500 mg daily for the next 5 days. Patient will continue with wound care. Recommend follow-up with plastic surgery within 1 week to follow-up his hospitalization and continue his care. Patient with hypertension. Acute renal sufficiency was noted. Patient previously on Maxzide. This was discontinued. Renal function improved off Maxzide. Blood pressure medicationcarvedilol was introduced. Blood pressure stable on current medication. At discharge patient will continue with carvedilol 3.125 mg 1 pill twice daily. Recommend to maintain blood pressure less than 130/80. Further adjustment can be done by his PCP. Recommend to monitor his blood pressure daily. If blood pressures remain above 140/90 he can follow-up with his PCP to further address. Patient with hyperlipidemia. At discharge patient will continue with Lipitor 20 mg daily. Patient with BPH. At discharge patient will continue with Flomax 0.4 mg daily. Patient with history of gout. At discharge patient will continue with allopurinol 100 mg daily. Vital Signs/Physical Exam: Temp Pulse Resp BP Pulse Ox 97.7 F 62 16 142/65 H 98 10/07/20 12:00 10/07/20 12:00 10/07/20 12:00 10/07/20 12:00 10/07/20 12:00 General: Alert, In no apparent distress, Oriented x3, Cooperative HEENT: Atraumatic Neck: Supple Respiratory: Clear to auscultation bilaterally, Normal air movement Cardiovascular: Normal pulses, Regular rate/rhythm Gastrointestinal: Normal bowel sounds, No tenderness, No masses, No rebound, No guarding Musculoskeletal: No erythema, No tenderness, No warmth Integumentary: Other (bandage in place to the left forearm. Closure was performed earlier) Neurological: Normal speech, Normal strength at 5/5 x4 extr, Normal tone, Normal affect Laboratory Data at Discharge: WBC 6.90 K/uL (4.3-10.9) D 10/07/20 05:28 Hgb 12.7 g/dL (13.6-17.9) L 10/07/20 05:28 Hct 38.5 % (39.6-49.0) L 10/07/20 05:28 Plt Count 172 K/uL (152-406) 10/07/20 05:28 Sodium 144 mmol/L (136-145) 10/07/20 05:28 Potassium 4.0 mmol/L (3.5-5.1) 10/07/20 05:28 BUN 18 mg/dL (7-18) 10/07/20 05:28 Creatinine 0.91 mg/dL (0.55-1.3) 10/07/20 05:28 Glucose 105 mg/dL (74-106) 10/07/20 05:28 Magnesium 2.3 mg/dL (1.8-2.4) 10/07/20 05:28 Total Bilirubin 0.5 mg/dL (0.2-1.0) 10/03/20 19:13 AST 16 U/L (15-37) 10/03/20 19:13 ALT 17 U/L (12-78) 10/03/20 19:13 Alkaline Phosphatase 142 U/L (45-117) H 10/03/20 19:13 Home Medications: Allopurinol 100 mg PO DAILY 10/04/20 Atorvastatin Calcium [Lipitor*] 20 mg PO DAILY 10/04/20 Tamsulosin HCl [Flomax] 1 tab PO DAILY 10/04/20 carvediloL [Coreg*] 3.125 mg PO BID 6AM 6PM #60 tab 10/07/20 levoFLOXacin [Levaquin] 500 mg PO DAILY #5 tab 10/07/20 New Medications: carvediloL [Coreg*] 3.125 mg PO BID 6AM 6PM #60 tab levoFLOXacin [Levaquin] 500 mg PO DAILY #5 tab Physician Discharge Instructions: Patient presented with left forearm cellulitis with recent 7.5 cm excisional wound due to skin cancer. There was wound dehiscence. Patient was admitted for treatment. Patient was started on IV antibiotic therapy with improvement. Patient was seen and evaluated by plastic surgery. Plastic surgery performed debridement of skin and subcutaneous tissue. After swelling improved patient was taken back again to surgery for I/D and closure. Patient has done well. Wound culture positive for staph aureus. At discharge the patient will continue with Levaquin 500 mg daily for the next 5 days. Patient will continue with wound care. Recommend follow-up with plastic surgery within 1 week to follow-up his hospitalization and continue his care. Patient with hypertension. Acute renal sufficiency was noted. Patient previously on Maxzide. This was discontinued. Renal function improved off Maxzide. Blood pressure medicationcarvedilol was introduced. Blood pressure stable on current medication. At discharge patient will continue with carvedilol 3.125 mg 1 pill twice daily. Recommend to maintain blood pressure less than 130/80. Further adjustment can be done by his PCP. Recommend to monitor his blood pressure daily. If blood pressures remain above 140/90 he can follow-up with his PCP to further address. Patient with hyperlipidemia. At discharge patient will continue with Lipitor 20 mg daily. Patient with BPH. At discharge patient will continue with Flomax 0.4 mg daily. Patient with history of gout. At discharge patient will continue with allopurinol 100 mg daily. Diet: AHA Activity: Ad nicola Followup: MARKO ZHU [Primary Care Provider] - Time spent managing pt's care (in minutes): 55
[2020-10-07] MEDS ORDERED: KETOROLAC 30 MG/ML INJ ONE (14:37)
[2020-10-07] MEDS ORDERED: FENTANYL CITR 100 MCG/2 ML ONE (14:37)
[2020-10-07] MEDS ORDERED: propofoL 200 MG/20 ML VIAL IV ONE (14:37)
[2020-10-07] MEDS ORDERED: LIDOCAINE 1% MPF 5 ML VIAL ONE (14:37)
[2020-10-07] MEDS ORDERED: dexAMETHasone 10 MG/ML VIAL ONE (14:38)
[2020-10-07] MEDS ORDERED: GLYCOPYRROLATE 0.2 MG/ML SYR ONE (15:18)
[2020-10-07 15:52] VITALS: O2SAT 100
--- NOTE | 2020-10-07 16:15 | OP ---
Surgeon: Ricardo Coleman MD Preoperative Diagnosis: Open wound, left forearm. Postoperative Diagnosis: Open wound, left forearm. Procedure: Debridement of skin and subcutaneous tissue, rotational flap closure, surgical dressing. Anesthesia: General. Description Of Procedure: After satisfactory induction of general anesthesia, the left arm was prepped with Betadine scrub, Betadine paint, dry sterile drapes were applied in usual manner. A scalpel was used to debride the skin edges. then a proximally based U-shaped flap was outlined. It was rotated in position and wound was closed with 3-0 Prolene horizontal mattress or justin. Dressed with Xeroform, Kerlix, and a splint holding the wrist in 10 degrees dorsiflexion. The patient tolerated procedure well and returned to recovery. AMALIA/DARRYL Voice ID: [id number] Report ID: [id number] DUDLEY
[2020-10-07] MEDS: ENOXAPARIN 40 MG/0.4 ML SQ SCH (17:00)
[2020-10-07 17:19] VITALS: TEMP 97.1
[2020-10-07 17:53] VITALS: BP 161/70
== END 2020-10-07 18:05 | disposition home or self-care (01) | DRG 574 ==
LOC: ER 15:40 → ERHOLD 21:10 → 2ND 21:51
PROVIDERS: ADMIT Family Medicine; ATTEND Family Medicine
PROC: 0JDH3ZZ Extraction of Left Lower Arm Subcutaneous Tissue and Fascia, Percutaneous Approach (ICD-10-PCS; principal; 2020-10-04 15:00)
PROC: 0HXEXZZ Transfer Left Lower Arm Skin, External Approach (ICD-10-PCS; 2020-10-07)
DX: L03.114 Cellulitis of left upper limb (principal); T81.31XA Disruption of external operation (surgical) wound, not elsewhere classified, initial encounter; B95.61 Methicillin susceptible Staphylococcus aureus infection as the cause of diseases classified elsewhere; I10 Essential (primary) hypertension; E78.5 Hyperlipidemia, unspecified; N40.0 Benign prostatic hyperplasia without lower urinary tract symptoms; M10.9 Gout, unspecified; N28.9 Disorder of kidney and ureter, unspecified; I25.10 Atherosclerotic heart disease of native coronary artery without angina pectoris; C44.609 Unspecified malignant neoplasm of skin of left upper limb, including shoulder; I44.1 Atrioventricular block, second degree; Z95.5 Presence of coronary angioplasty implant and graft
CPT/HCPCS: 36415; 80048; 80076; 80202; 83605; 83735; 84145; 85025; 87040; 87070; 87077; 87186; 87205; 93005; 93971; 96365; 96367; 99285; J0690; J0692; J1100; J1650; J2405; J2704; J3010; J3370; J7040; J7050; J7120

== ENCOUNTER 2023-11-07 16:04 | Emergency (ER) | payer OTHER ==
--- NOTE | 2023-11-07 17:57 | RAD REPORT ---
EXAM DESCRIPTION: US - Extrem Venous W Compress Olegario - 11/07/2023 5:47 pm CLINICAL HISTORY: PAIN Bilateral leg edema and swelling. COMPARISON: <Comparisons> TECHNIQUE: Real-time sonographic interrogation of the left and right lower extremity deep venous sys tems was performed. FINDINGS: Normal compressibility, flow augmentation, phasic flow and spontaneous flow is identified in both the left and right lower extremity deep venous systems. IMPRESSION: No sonographic evidence of left or right lower extremity deep venous thrombosis.
--- NOTE | 2023-11-07 18:05 | RAD REPORT ---
EXAM DESCRIPTION: US - Lower Extremity Arterial Bilat - 11/07/2023 5:47 pm CLINICAL HISTORY: NUMBNESS/TINGLING COMPARISON: No comparisons TECHNIQUE: Bilateral lower extremity arterial Doppler examination was performed with mook gentile FINDINGS: Triphasic waveforms are seen throughout both lower extremity arterial systems to the level of the corin salis pedis arteries. No stenosis or occlusion seen. IMPRESSION: No evidence of significant peripheral vascular disease.
--- NOTE | 2023-11-07 18:16 | ER ---
Nurse's Notes [facility] Name: Harpreet Izaguirre Age: 78 yrs Sex: Male : 1945 Arrival Date: 11/07/2023 Time: 16:04 Bed 18 Private MD: Diagnosis: Varicose veins of bilateral lower extremities with other complications Presentation: 11/06 16:17 Chief complaint: Patient states: his hands and feet turn purple during the day and his 6 doctor told him to come here because he could have issues with blood flow. Coronavirus screen: At this time, the client does not indicate any symptoms associated with coronavirus-19. Ebola Screen: No symptoms or risks identified at this time. Initial Sepsis Screen: Does the patient meet any 2 criteria? No. Patient's initial sepsis screen is negative. Does the patient have a suspected source of infection? No. Patient's initial sepsis screen is negative. Risk Assessment: Do you want to hurt yourself or someone else? Patient reports no desire to harm self or others. Onset of symptoms was November 07, 2023. 16:17 Method Of Arrival: Ambulatory [facility] 16:17 Acuity: LORA 4 kc6 Triage Assessment: 16:20 General: Appears in no apparent distress. comfortable, well groomed, well developed, kc6 Behavior is calm, cooperative, appropriate for age. Pain: Denies pain. Historical: - Allergies: 16:20 No Known Allergies; kc6 - PMHx: 16:20 GERD; Gout; High Cholesterol; Hypertension; Parkinson's disease; kc6 - PSHx: 16:20 Stented artery; kc6 - Immunization history:: Client reports having NOT received the Covid vaccine. Flu vaccine is not up to date. - Infectious Disease History:: Denies. - Social history:: Smoking status: Patient reports the use of cigarette tobacco products, cigars. Screenin:50 [facility] ED Fall Risk Assessment (Adult) History of falling in the last 3 months, db including since admission No falls in past 3 months (0 pts) Confusion or Disorientation No (0 pts) Intoxicated or Sedated No (0 pts) Impaired Gait No (0 pts) Mobility Assist Device Used No (0 pt) Altered Elimination No (0 pt) Score/Fall Risk Level 0 - 2 = Low Risk Oriented to surroundings, Maintained a safe environment. Abuse screen: Denies threats or abuse. Denies injuries from another. Nutritional screening: No deficits noted. Tuberculosis screening: No symptoms or risk factors identified. Assessment: 16:49 Reassessment: Patient appears in no apparent distress at this time. Patient and/or db family updated on plan of care and expected duration. Pain level reassessed. Patient is alert, oriented x 3, equal unlabored respirations, skin warm/dry/pink. General: Appears in no apparent distress. comfortable, Behavior is calm, cooperative. Pain: Denies pain. Neuro: Level of Consciousness is awake, alert, obeys commands, Oriented to person, place, time, situation. Respiratory: Airway is patent Respiratory effort is even, unlabored. 19:00 Reassessment: Patient appears in no apparent distress at this time. Patient and/or db family updated on plan of care and expected duration. Pain level reassessed. Patient is alert, oriented x 3, equal unlabored respirations, skin warm/dry/pink. Vital Signs: 16:17 BP 130 / 60; Pulse 50; Resp 16 S; Temp 98.6(O); Pulse Ox 92% on R/A; Weight 88.45 kg kc6 (R); Height 5 ft. 6 in. (R); Pain 0/10; 16:38 BP 129 / 64; Pulse 60; Resp 16; Pulse Ox 98% on R/A; db 17:30 BP 155 / 75; Pulse 63; Resp 16; Pulse Ox 99% on R/A; db 18:15 BP 158 / 52; Pulse 59; Resp 16; Pulse Ox 99% on R/A; db 16:17 Body Mass Index 31.47 (88.45 kg, 167.64 cm) kc6 16:17 Pain Scale: Adult kc6 ED Course: 16:12 Patient arrived in ED. mg5 16:20 Triage completed. kc6 16:20 Arm band placed on. kc6 16:26 Darryn Tomlinson MD is Attending Physician. bo1 16:40 Irene Mcnair, MATEO is Primary Nurse. db 16:49 Patient has correct armband on for positive identification. Bed in low position. Call db light in reach. Side rails up X 1. Provided Education on: DISCHARGE . Pulse ox on. NIBP on. Warm blanket given. 17:49 US Extremity Venous W Compression Olegario In Process Unspecified. EDMS 17:49 LE Arterial Bilateral In Process Unspecified. EDMS 19:00 No provider procedures requiring assistance completed. Patient did not have IV access db during this emergency room visit. Administered Medications: No medications were administered Medication: 19:00 VIS not applicable for this client. db Outcome: 18:15 Discharge ordered by bo1 19:00 Discharged to home ambulatory, with family, db 19:00 Condition: stable 19:00 Discharge instructions given to patient, Instructed on discharge instructions, follow up and referral plans. 19:02 Patient left the ED. db Signatures: Dispatcher [employer] Rebekah Rangel RN RN kc6 Irene Mcnair RN RN Yahaira Black mg5 Darryn Tomlinson MD MD bo1 Corrections: (The following items were deleted from the chart) 16:22 16:20 PMHx: heart stents; kc6 kc6 16:50 16:49 Client placed on continuous cardiac and pulse oximetry monitoring. NIBP db monitoring applied. campus monitor on. Pulse ox on. NIBP on. db
--- NOTE | 2023-11-07 18:16 | EDPHYS ---
Physician Documentation [facility] Name: Harpreet Izaguirre Age: 78 yrs Sex: Male : 1945 Arrival Date: 11/07/2023 Time: 16:04 Bed 18 Private MD: ED Physician Darryn Tomlinson HPI: 11/06 16:37 This 78 yrs old Male presents to ER via Ambulatory with complaints of Purple bo1 toes and fingers. 16:37 Hx of "purple" toes and feet noted by daughter in law coming from [place]. Onset: The bo1 symptoms/episode began/occurred gradually, 4 day(s) ago, No prior hx. Pt's son in [place] told pt to go to the ER. Severity of symptoms: At their worst the symptoms were mild in the emergency department the symptoms have resolved. No prior hx except parkinson's. Historical: - Allergies: 16:20 No Known Allergies; kc6 - PMHx: 16:20 GERD; Gout; High Cholesterol; Hypertension; Parkinson's disease; kc6 - PSHx: 16:20 Stented artery; kc6 - Immunization history:: Client reports having NOT received the Covid vaccine. Flu vaccine is not up to date. - Infectious Disease History:: Denies. - Social history:: Smoking status: Patient reports the use of cigarette tobacco products, cigars. ROS: 16:39 Constitutional: Negative for fever, chills, and weight loss, Positive for "dizziness" bo1 and "up and down" BP readings 16:39 Constitutional: Positive for Dizziness, 16:39 Neck: Negative for pain with movement, pain at rest, 16:39 Cardiovascular: Negative for chest pain, palpitations, 16:39 Respiratory: Negative for cough, shortness of breath, 16:39 Abdomen/GI: Negative for abdominal pain, nausea and vomiting, 16:39 MS/extremity: Positive for paresthesias, tingling, "purple" color to the toes/feet (L>R), Exam: 16:42 Constitutional: This is a well developed, well nourished patient who is awake, alert, bo1 and in no acute distress. 16:42 Constitutional: The patient appears in no acute distress, alert, awake, comfortable, 16:42 Neck: External neck: is normal, Lymph nodes: no appreciated lymphadenopathy, no acute changes, 16:42 Chest/axilla: Inspection: normal, 16:42 Cardiovascular: Pulses: no pulse deficits are appreciated, 16:42 Respiratory: the patient does not display signs of respiratory distress, Respirations: normal, Breath sounds: are clear throughout, 16:42 Musculoskeletal/extremity: Extremities: all appear grossly normal, with no appreciated pain with palpation, Venous varicosities but appearance appears normal matt for pt's age, 16:42 Skin: Appearance: Normal for age, no discoloration vs superficial vessel patterns, 16:51 Neuro: Orientation: appropriate for stated age, no acute changes, Mentation: bo1 appropriate for stated age, no acute changes, Cranial nerves: is grossly normal based on the patient's age, no acute changes, Abnormal movements: resting tremor, is located in the right arm and left arm, c/w parkinson's, Vital Signs: 16:17 BP 130 / 60; Pulse 50; Resp 16 S; Temp 98.6(O); Pulse Ox 92% on R/A; Weight 88.45 kg kc6 (R); Height 5 ft. 6 in. (R); Pain 0/10; 16:38 BP 129 / 64; Pulse 60; Resp 16; Pulse Ox 98% on R/A; db 17:30 BP 155 / 75; Pulse 63; Resp 16; Pulse Ox 99% on R/A; db 18:15 BP 158 / 52; Pulse 59; Resp 16; Pulse Ox 99% on R/A; db 16:17 Body Mass Index 31.47 (88.45 kg, 167.64 cm) [facility] 16:17 Pain Scale: Adult kc6 MDM: 16:26 Patient medically screened. bo1 16:51 Differential Diagnosis Arterial vs venous insufficiency. bo1 17:39 Data reviewed: vital signs. bo1 11/06 16:36 Order name: Extremity Venous W Compression Olegario; Complete Time: 18:10 bo1 11/06 16:36 Order name: LE Arterial Bilateral; Complete Time: 18:10 bo1 Administered Medications: No medications were administered Disposition Summary: 11/07/23 18:15 Discharge Ordered Notes: Location: Home bo1 Problem: chronic bo1 Symptoms: are resolved bo1 Condition: Stable bo1 Diagnosis - Varicose veins of bilateral lower extremities with other complications bo1 Followup: bo1 - With: Private Physician - When: - Reason: Continuance of care Discharge Instructions: - Discharge Summary Sheet bo1 - Varicose Veins bo1 Forms: - Medication Reconciliation Form bo1 - Antibiotic Education bo1 - Prescription Opioid Use bo1 - Patient Portal Instructions bo1 - Leadership Thank You Letter bo1 Signatures: Dispatcher [employer] Rebekah Rangel RN RN kc6 Darryn Tomlinson MD MD bo1 Corrections: (The following items were deleted from the chart) 16:22 16:20 PMHx: heart stents; lucy kc6 16:36 16:36 Lower Extremity Arterial Bilat+US.RAD.BRZ ordered. EDMS EDMS
[2023-11-07 19:08] VITALS: TEMP 98.6
[2023-11-07 19:11] VITALS: O2SAT 99
[2023-11-07 19:13] VITALS: BP 158/52
== END 2023-11-07 19:02 | disposition home or self-care (01) ==
LOC: ER 16:04
DX: I83.893 Varicose veins of bilateral lower extremities with other complications (principal); G20.A1 Parkinson's disease without dyskinesia, without mention of fluctuations; I10 Essential (primary) hypertension; Z72.0 Tobacco use
CPT/HCPCS: 93925; 93970; 99283

== ENCOUNTER 2024-06-04 13:31 | Emergency (ER) | payer OTHER ==
[2024-06-04 14:15] LABS: Specific Gravity 1.012 (1.005-1.030); Sqamous Epithelial None Seen /HPF (None Seen); Urine Bacteria None Seen /HPF (<20); Urine Bilirubin NEGATIVE (Negative); Urine Blood Negative (Negative); Urine Clarity Clear (Clear); Urine Color Light-Yellow (Yellow); Urine Culture Reflex Order NOT NEEDED; Urine Glucose NEGATIVE (Negative); Urine Ketones NEGATIVE (Negative); Urine Micro Reflex YN NO BILL MICROSCOPIC; Urine Nitrite NEGATIVE (Negative); Urine Protein NEGATIVE (Negative); Urine RBC <5 /HPF (None Seen); Urine Urobilinogen Normal (Normal); Urine WBC None Seen /HPF (<5)
[2024-06-04 15:30] LABS: Absolute Basophils 0.1 K/uL (0-0.5); Absolute Eosinophils 0.1 K/uL (0-0.5); Absolute Lymphocytes (CBC) 1.4 K/uL (0.7-4.9); Absolute Monocytes 0.5 K/uL (0.1-1.3); Basophils % 1.1 % (0-1.3); Eosinophils % 2.2 % (0-4.4); Hematocrit 37.1 % (39.6-49.0); Hemoglobin 12.3 g/dL (13.6-17.9); Lymphocytes % 27.5 % (15.3-44.8); MCH 29.8 pg (27.0-35.0); MCHC 33.1 g/dL (32.0-36.0); MPV 7.2 fL (7.6-11.3); Monocytes % 9.4 % (3.3-12.3); Neutrophils % 59.8 % (41.7-73.7); Nucleated Red Blood Cells % 0.1 % (0-0); Platelets 200 thou/uL (152-406); RBC Red Blood Cell Count 4.13 M/uL (4.33-5.43); Red Cell Distribution Width 18.3 % (12.1-15.2)
[2024-06-04] MEDS ORDERED: HYDROCODONE/APAP 5/325 MG TAB ONE (15:35)
[2024-06-04 15:39] LABS: Anion Gap 7.2 mEq/L (5.0-15.0); Potassium 4.2 mEq/L (3.5-5.1)
--- NOTE | 2024-06-04 16:49 | RAD REPORT ---
EXAMINATION: CT Abdomen Pelvis W Contrast CLINICAL INDICATION: Male, 79 years old. urinary problem TECHNIQUE: CT abdomen and pelvis was performed, after the administration of IV contrast, as per [facility] protocol. Axial, sagittal and coronal reconstructions were obtained. One or more of the following dose reduction techniques were used: Automated exposure control, adjustment of the mA and k V according to patient size, and iterative reconstruction. Unless otherwise specified, incidental findings do not require dedicated imaging follow-up. COMPARISON: 12/28/2022. FINDINGS: LOWER CHEST: The visualized lung bases are clear. Ectasia of the ascending thoracic aorta measuring u p to 2.8 cm LIVER: Normal in size and contour. No focal lesion. BILIARY SYSTEM: Calcified stones near the gallbladder neck, largest measuring 11 mm. SPLEEN: Normal size. No focal lesion. PANCREAS: No mass, ductal dilation, or felice-pancreatic fluid. ADRENALS: Normal; no mass. KIDNEYS: Normal size and contour. No hydronephrosis. URINARY BLADDER: Unremarkable. GASTROINTESTINAL TRACT: No evidence of free air, significant intra-abdominal free fluid, bowel obstru ction or abscess. Small duodenal diverticulum. APPENDIX: Normal appendix. LYMPH NODES: No lymphadenopathy. MUSCULOSKELETAL: No acute or suspicious osseous abnormality. ADDITIONAL FINDINGS: None. IMPRESSION: No evidence of urinary calculi or obstruction. Cholelithiasis. No other acute intra-abdominal process. Incidental findings as above.
--- NOTE | 2024-06-04 17:23 | RAD REPORT ---
EXAMINATION: ULTRASOUND DUPLEX OF SCROTUM AND TESTICLES CLINICAL INDICATION: Male, 79 years, testicular pain TECHNIQUE: Duplex scan of the scrotal contents was performed including real-time color and spectral D oppler ultrasonography with arterial inflow and venous outflow. COMPARISON: No prior exam. FINDINGS: RIGHT TESTICLE AND EPIDIDYMIS: The right testicle is normal in size, measuring 3.1 x 2.4 x 2.6 cm. Normal, homogeneous echotexture with no focal lesion seen. The right epididymis is normal. Color Doppler flow in the right testicle is normal. Normal arterial and venous spectral Doppler waveforms are identified. Small hydrocele. No varicocele. LEFT TESTICLE AND EPIDIDYMIS: The left testicle is normal in size, measuring 3.4 x 2.9 x 2.4 cm. Normal, homogeneous echotexture with no focal lesion seen. The left epididymis is normal. Color Doppler flow in the left testicle is normal. Normal arterial and venous spectral Doppler waveforms are identified. Small hydrocele. No varicocele. INGUINAL CANAL: No hernia. ADDITIONAL FINDINGS: None. IMPRESSION: Small bilateral hydroceles. No acute or significant abnormalities of the testicular parenchyma.
--- NOTE | 2024-06-04 17:37 | EDPHYS ---
Physician Documentation [facility] Name: Harpreet Izaguirre Age: 79 yrs Sex: Male : 1945 Arrival Date: 06/04/2024 Time: 13:31 Bed 5 Private MD: ED Physician Shankar Wall HPI: 06/04 13:51 This 79 yrs old Male presents to ER via Ambulatory with complaints of Urinary sb4 Problem. 13:51 urinary frequency and pain with urination x 1 week. no blood in urine. no n/v/d, flank sb4 pain, fever, or chills. told in the past he may have "prostate issues". Historical: - Allergies: 13:41 No Known Allergies; hb - PMHx: 13:41 GERD; Gout; High Cholesterol; Hypertension; Parkinson's disease; hb - PSHx: 13:41 Stented artery; hb - Immunization history:: Adult Immunizations up to date. - Infectious Disease History:: Denies. - Social history:: Smoking status: Patient reports the use of cigarette tobacco products. ROS: 13:52 Constitutional: Negative for fever, chills, and weight loss, sb4 13:52 : Positive for urinary symptoms, 13:52 All other systems are negative, Exam: 13:52 Constitutional: This is a well developed, well nourished patient who is awake, alert, sb4 and in no acute distress. 13:52 Head/Face: Normocephalic, atraumatic. Eyes: Extra-ocular motions intact. Periorbital areas with no swelling, redness, or edema. Respiratory: No increased work of breathing, no retractions or nasal flaring. Abdomen/GI: Soft, non-tender, no distension. Skin: Warm, dry with normal turgor. Normal color with no rashes, no lesions, and no evidence of cellulitis. Vital Signs: 13:39 BP 106 / 41; Pulse 67; Resp 16; Temp 97.9; Pulse Ox 100% on R/A; Weight 83.91 kg; hb Height 5 ft. 6 in. ; Pain 1/10; 15:30 BP 149 / 65; Pulse 64; Resp 18; Pulse Ox 100% on R/A; db 13:39 Body Mass Index 29.86 (83.91 kg, 167.64 cm) hb 13:39 Pain Scale: Adult hb Laceration: 15:39 Wound Repair of 4cm ( 1.6in ) subcutaneous laceration to heel of right hand. Distal sb4 neuro/vascular/tendon intact. Wound prep: Extensive cleansing with hibiclenz by me, Wound irrigation with saline by me. Skin closed with thin layer Adhesive skin closure using Dermabond. Dressed with non-adherent dressing. Patient tolerated well. MDM: 13:35 Medical Screening Exam initiated sb4 15:40 Data reviewed: vital signs, nurses notes, and as a result, I will discharge patient. sb4 Counseling: I had a detailed discussion with the patient and/or guardian regarding the historical points, exam findings, and any diagnostic results supporting the discharge/admit diagnosis, the need for outpatient follow up, for definitive care, to return to the emergency department if symptoms worsen or persist or if there are any questions or concerns that arise at home. 06/04 13:42 Order name: UAM; Complete Time: 14:17 sb4 06/04 13:42 Order name: Urine Culture sb4 06/04 14:17 Order name: CBC with Diff; Complete Time: 15:37 sb4 06/04 14:17 Order name: BMP; Complete Time: 15:39 sb4 06/04 14:17 Order name: CT Abd/Pelvis - IV Contrast Only; Complete Time: 16:49 sb4 06/04 15:42 Order name: Scrotum Testicles US; Complete Time: 17:23 sb4 06/04 14:17 Order name: IV Start; Complete Time: 15:21 sb4 Administered Medications: 15:40 Drug: HYDROcodone-acetaminophen PO 5 mg-325 mg 1 tabs PO once Route: PO; db 18:13 Follow up: Response: No adverse reaction bp 18:13 Drug: Flomax PO 0.4 mg PO once Route: PO; bp 18:13 Follow up: Response: No adverse reaction bp Disposition: 20:36 Co-signature as Attending Physician, Shankar Wall MD I reviewed the patient's care rt provided by the Advanced Practice Provider and agree with the diagnosis and treatment plan. Disposition Summary: 06/04/24 17:36 Discharge Ordered Notes: Location: Home sb4 Problem: new sb4 Symptoms: have improved sb4 Condition: Stable sb4 Diagnosis - Pollakiuria sb4 Followup: sb4 - With: Tre Dugan MD - When: 1 week - Reason: Recheck today's complaints, Re-evaluation by your physician Discharge Instructions: - Discharge Summary Sheet sb4 - Urinary Frequency, Adult sb4 - Benign Prostatic Hyperplasia sb4 Forms: - Patient Portal Instructions sb4 - Leadership Thank You Letter sb4 Prescriptions: - Flomax 0.4 mg Oral capsule - take 1 capsule ORAL route every 24 hours; 20 capsule; Refills: 0, Product sb4 Selection Permitted Addendum: 06/16/2024 13:32 Addendum: Laceration repair was documented by me in error. Please disregard. I did not s b4 repair any laceration on this patient, nor did he have any laceration.. Signatures: Dispatcher [employer] Kelly Villegas RN RN Mike Harrison, RN RN bp Irene Mcnair, RN RN db Nishi Fairchild, PA-C PABenedictC sb4 Shankar Wall MD MD rt Corrections: (The following items were deleted from the chart) 06/04 13:41 13:41 Social history: Smoking status: Patient denies any tobacco usage or history of. hbhb 13:52 13:51 urinary frequency and pain with urination x 1 week. no blood in urine. no n/v/d, sb4 fever, or chills. told in the past he may have "prostate issues". sb4 14:18 14:18 Abdomen Pelvis W Con+CT.RAD.BRZ ordered. EDMS EDMS
--- NOTE | 2024-06-04 17:37 | ER ---
Nurse's Notes [facility] Name: Harpreet Izaguirre Age: 79 yrs Sex: Male : 1945 Arrival Date: 06/04/2024 Time: 13:31 Bed 5 Private MD: Diagnosis: Pollakiuria Presentation: 06/04 13:39 Chief complaint: Difficulty urinating and pain with urination x 1 week. Coronavirus hb screen: At this time, the client does not indicate any symptoms associated with coronavirus-19. Ebola Screen: No symptoms or risks identified at this time. Initial Sepsis Screen: Does the patient meet any 2 criteria? No. Patient's initial sepsis screen is negative. Does the patient have a suspected source of infection? No. Patient's initial sepsis screen is negative. Risk Assessment: Do you want to hurt yourself or someone else? Patient reports no desire to harm self or others. Onset of symptoms was May 28, 2024. 13:39 Method Of Arrival: Ambulatory hb 13:39 Acuity: LORA 3 hb Historical: - Allergies: 13:41 No Known Allergies; hb - PMHx: 13:41 GERD; Gout; High Cholesterol; Hypertension; Parkinson's disease; hb - PSHx: 13:41 Stented artery; hb - Immunization history:: Adult Immunizations up to date. - Infectious Disease History:: Denies. - Social history:: Smoking status: Patient reports the use of cigarette tobacco products. Screenin:47 [facility] ED Fall Risk Assessment (Adult) History of falling in the last 3 months, db including since admission Yes- single mechanical fall (1 pt) Confusion or Disorientation No (0 pts) Intoxicated or Sedated No (0 pts) Impaired Gait Yes (1 pt) Mobility Assist Device Used No (0 pt) Altered Elimination No (0 pt) Score/Fall Risk Level 0 - 2 = Low Risk Oriented to surroundings, Maintained a safe environment. Abuse screen: Denies threats or abuse. Denies injuries from another. Nutritional screening: No deficits noted. Tuberculosis screening: No symptoms or risk factors identified. Assessment: 15:00 Reassessment: Patient appears in no apparent distress at this time. Patient and/or db family updated on plan of care and expected duration. Pain level reassessed. Patient is alert, oriented x 3, equal unlabored respirations, skin warm/dry/pink. General: Appears in no apparent distress. comfortable, Behavior is calm, cooperative. Pain: Denies pain. Neuro: Level of Consciousness is awake, alert, obeys commands, Oriented to person, place, time, situation. 15:30 Reassessment: PT NOW COMPLAINS OF RIGHT TESTICULAR PAIN. NOTIFIED PROVIDER TIM OF db COMPLAINT. SEE MAR FOR MEDICATION ADMINISTRATION. Vital Signs: 13:39 BP 106 / 41; Pulse 67; Resp 16; Temp 97.9; Pulse Ox 100% on R/A; Weight 83.91 kg; hb Height 5 ft. 6 in. ; Pain /; 15:30 BP 149 / 65; Pulse 64; Resp 18; Pulse Ox 100% on R/A; db 13:39 Body Mass Index 29.86 (83.91 kg, 167.64 cm) hb 13:39 Pain Scale: Adult hb ED Course: 13:34 Patient arrived in ED. al6 13:34 Nishi Fairchild PA-C is [facility]. sb4 13:34 Shankar Wall MD is Attending Physician. sb4 13:41 Triage completed. hb 13:41 Arm band placed on. hb 14:54 Radiology exam delayed due to lab results not completed at this time. (BUN/Creatinine) nj IV insertion attempt and/or patient not having appropriate IV at this time. 15:10 Initial lab(s) drawn, by me, sent to lab. Inserted saline lock: 20 gauge in right db antecubital area, using aseptic technique. Blood collected. Flushed with 10 mL NS. 15:11 Irene Mcnair, RN is Primary Nurse. db 15:47 Patient has correct armband on for positive identification. Bed in low position. Call db light in reach. Side rails up X 1. Pulse ox on. NIBP on. Warm blanket given. Pillow given. 16:02 CT Abd/Pelvis - IV Contrast Only In Process Unspecified. EDMS 16:34 Scrotum Testicles US In Process Unspecified. EDMS 17:35 Tre Dugan MD is Referral Physician. sb4 Administered Medications: 15:40 Drug: HYDROcodone-acetaminophen PO 5 mg-325 mg 1 tabs PO once Route: PO; db 18:13 Follow up: Response: No adverse reaction bp 18:13 Drug: Flomax PO 0.4 mg PO once Route: PO; bp 18:13 Follow up: Response: No adverse reaction bp Outcome: 17:36 Discharge ordered by MD. forte 18:29 Patient left the ED. iw Signatures: Dispatcher [employer] Shelley Luna RN RN iw Baxter, Heather, RN RN hb Jordan, Nathan nj Peltier, Brian, RN RN bp Benton, Danielle, RN RN db Brown, Sophia PADionicio PACori Phillips Corrections: (The following items were deleted from the chart) 13:41 13:41 Social history: Smoking status: Patient denies any tobacco usage or history of. hbhb
[2024-06-04] MEDS ORDERED: TAMSULOSIN 0.4 MG SR CAP ONE (18:12)
[2024-06-04 18:51] VITALS: TEMP 97.9; O2SAT 100
[2024-06-04 18:52] VITALS: BP 149/65
== END 2024-06-04 18:29 | disposition home or self-care (01) ==
LOC: ER 13:31
DX: R35.0 Frequency of micturition (principal); R30.0 Dysuria; N50.811 Right testicular pain; G20.A1 Parkinson's disease without dyskinesia, without mention of fluctuations
CPT/HCPCS: 87088; 85025; 81001; 87086; 80048; 36415; 74177; 76870; 99284; Q9967; 12042